=== PATIENT | female | born 1985 | race Caucasian/White ===

== ENCOUNTER 2017-07-02 17:03 | Emergency (ER) | payer OTHER ==
[2017-07-02 17:19] VITALS: BP 114/64; PULSE 74; TEMP 98.2; BMI 32.1
--- NOTE | 2017-07-02 18:43 | PDOC ---
History of Present Illness - General Chief Complaint: Injury Stated Complaint: FALL/INJURY Time Seen by Provider: 07/02/17 17:52 History Source: Patient Exam Limitations: No Limitations - History of Present Illness Initial Comments: 07/02/17 18:43 My chief complaint: Fall yesterday pain to right palm right anterior lower extremity and left ankle History of present illness: Patient is a 32-year-old with no significant medical history here today patient reports falling at work yesterday catching herself right hand stretched outward and twisting her left ankle and hitting her right lower leg. Patient has a bruise to her right mid palm. Patient does not have any swelling to her lower extremities. Patient denies hitting her head. She reports that she was limping this morning. Patient denies any chance of . Patient reports that pain in palm is 8 when putting her hand down on something and her right lower extremity is a 45 and left ankle 4 or 5 aching in nature. Patient does not want anything for pain presently. Patient denies any numbness of extremities. 07/02/17 19:21 Occurred: reports: yesterday Severity: reports: moderate (rt. palm) Pain Location: reports: lower extremity (left ankle, rt. lower extremity) Method of Injury: Yes: fall Modifying Factors: improves with: None Loss of Consciousness: no loss of consciousness Associated Symptoms (Fall): denies symptoms Past History - Past Medical History Allergies/Adverse Reactions: Allergies Allergy/AdvReac Type Severity Reaction Status Date / Time Penicillins Allergy Verified 07/02/17 17:13 Home Medications: Ambulatory Orders NK [No Known Home Medication] 07/02/17 Other medical history: DENIES - Immunization History Immunization Up to Date: Yes - Suicide/Smoking/Psychosocial Hx Smoking History: Never smoked Have you smoked in the past 12 months: No Information on smoking cessation initiated: No Hx Alcohol Use: No Drug/Substance Use Hx: No Substance Use Type: None Review of Systems - Review of Systems Able to Perform ROS?: Yes Constitutional: No: Symptoms Reported HEENTM: No: Symptoms Reported Respiratory: No: Symptoms reported Cardiac (ROS): No: Symptoms Reported ABD/GI: No: Symptoms Reported : No: Symptoms Reported Musculoskeletal: Yes: Joint Pain (rt. hand ), Other (rt. anterior lower leg, left ankle) Integumentary: Yes: Bruising (rt. palm ) Neurological: No: Symptoms reported *Physical Exam - Vital Signs Last Vital Signs Temp Pulse Resp BP Pulse Ox 98.2 F 74 16 114/64 98 07/02/17 17:13 07/02/17 17:13 07/02/17 17:13 07/02/17 17:13 07/02/17 17:13 - Physical Exam General Appearance: Yes: Appropriately Dressed Respiratory/Chest: positive: Lungs Clear, Normal Breath Sounds. negative: Chest Tender, Respiratory Distress Cardiovascular: positive: Regular Rhythm, Regular Rate, S1, S2 Vascular Pulses: Dorsalis-Pedis (R): 4+, Doralis-Pedis (L): 4+ Extremity: positive: Normal Capillary Refill, Normal Inspection (rt.wrist, hand except bruise palmar aspect mid, rt lower leg, ankle, foot, left ankle/foot), Normal Range of Motion (rt. wrist, all digits rt. hand, rt. elbow, left ankle b/ l , rt. anterior lower leg), Tender (rt palm, left ankle, rt. anterior lower extremity ) Integumentary: positive: Ecchymosis (rt. palm, ) Neurologic: positive: Alert, Normal Response, Respond to painful stimul (rt. hand, forearm, rt. lower extremity, left ankleb/l ), Responsive. negative: Numbness, Sensory Deficit (rt upper and lower extremity, left ankle b/l ) Deep Tendon Reflexes: Ankle (L): 4+, Ankle (R): 4+ ED Treatment Course - RADIOLOGY Radiology Studies Ordered: Category Date Time Status ANKLE & FOOT-LEFT* [RAD] Stat Radiology 07/02/17 18:36 Ordered LEG TIB/FIB-RIGHT [RAD] Stat Radiology 07/02/17 18:36 Ordered WRIST W/HAND-RIGHT* [RAD] Stat Radiology 07/02/17 18:36 Ordered Medical Decision Making - Medical Decision Making 07/02/17 18:45 Patient is a 32-year-old with no significant medical history here today patient reports falling at work yesterday catching herself right hand stretched outward and twisting her left ankle and hitting her right lower leg. Patient has a bruise to her right mid palm. Patient does not have any swelling to her lower extremities. Patient denies hitting her head. She reports that she was limping this morning. Patient denies any chance of . Patient reports that pain in palm is 8 when putting her hand down on something and her right lower extremity is a 45 and left ankle 4 or 5 aching in nature. Patient does not want anything for pain presently. Patient denies any numbness of extremities. fall r/o fracture rt. hand r/o fracture rt. tibia/fibia r/o fracture left ankle PLAN: xray rt. hand/wrist no gross bone or soft tissue abnormality seen per Dr. Mtz xray rt. tibia/fibia no fracture or abnormality seen per Dr. Mohamud xray left ankle/foot no fracture or dislocation noted there is mild soft tissue swelling over her dorsal aspect of foot without evidence of fracture or dislocation per Dr. Mohamud pancho wrap left foot/ankle follow up with orthopedist 07/02/17 19:13 *DC/Admit/Observation/Transfer Diagnosis at time of Disposition: Strain of foot, left Qualifiers: Encounter type: initial encounter Qualified Code(s): S96.912A - Strain of unspecified muscle and tendon at ankle and foot level, left foot, initial encounter Fall Qualifiers: Encounter type: initial encounter Qualified Code(s): W19.XXXA - Unspecified fall, initial encounter Leg pain, anterior Qualifiers: Laterality: right Qualified Code(s): M79.604 - Pain in right leg Contusion of right palm Qualifiers: Encounter type: initial encounter Qualified Code(s): S60.221A - Contusion of right hand, initial encounter - Discharge Dispostion Disposition: HOME Condition at time of disposition: Stable - Referrals Referrals: Jameson Pedraza MD [Staff Physician] - - Patient Instructions Additional Instructions: Elevate left foot as much as possible and apply ice to top of foot every 2-3 hours for 15 minutes each time today and tomorrow you may wear Pancho wrap to left foot and ankle during the day take off at night Apply ice to right palm every 2-3 hours for 15 minutes each time today and tomorrow while awake Take Aleve or Advil as needed as directed by inspector technician for pain Follow-up with orthopedist if pain continues Return to emergency room if symptoms worsen or new symptoms develop Patient voiced understanding of discharge instructions and all questions were answered - Post Discharge Activity Forms/Work/School Notes: Back to Work
== END 2017-07-02 19:24 | disposition home or self-care (01) ==
LOC: JERFT 17:03
DX: S60.221A Contusion of right hand, initial encounter (principal); S96.812A Strain of other specified muscles and tendons at ankle and foot level, left foot, initial encounter; W18.39XA Other fall on same level, initial encounter; Y93.89 Activity, other specified; Y92.89 Other specified places as the place of occurrence of the external cause; Y99.0 Civilian activity done for income or pay
CPT/HCPCS: 73110-TC-RT; 73130-TC-RT; 73590-TC-RT; 73610-TC-LT; 73630-TC-LT; 99281-25

== ENCOUNTER 2018-02-25 16:07 | Emergency (ER) | payer OTHER ==
[2018-02-25 16:19] VITALS: BMI 33.6
--- NOTE | 2018-02-25 16:20 | PDOC ---
Rapid Medical Evaluation Time Seen by Provider: 02/25/18 16:16 Medical Evaluation: Allergies Allergy/AdvReac Type Severity Reaction Status Date / Time Penicillins Allergy Verified 02/25/18 16:16 02/25/18 16:16 Pt. with L flank pain and nausea for 2 weeks. Pain wraps around to the LLQ. Nausea and pain after eating. Denies frequency, dysuria, vomiting, diarrhea, constipation Exam: Ambulatory, no respiratory distress. TTP LLQ. No CVA tenderness Order: labs, urine Pt. will proceed to ED for further evaluation.
[2018-02-25 17:27] LABS: BASO % 0.7 % (0-2.0); HEMATOCRIT 37.6 % (32.4-45.2); HEMOGLOBIN 12.3 GM/dL (10.7-15.3); LYMPH % 28.5 % (8-40); MCH 27.8 pg (25.7-33.7); MCHC 32.7 g/dl (32.0-36.0); MEAN CELL VOLUME 85.1 fl (80-96); MEAN PLT VOLUME 9.7 fl (7.5-11.1); MONO % 5.1 % (3.8-10.2); NEUT % 64.7 % (42.8-82.8); PLATELET COUNT 222 K/MM3 (134-434); RBC 4.42 M/mm3 (3.60-5.2); RDW 13.2 % (11.6-15.6); WHITE BLOOD COUNT 8.7 K/mm3 (4.0-10.0)
[2018-02-25 17:44] LABS: INR 1.03 (0.82-1.09); PROTHROMBIN TIME (PATIENT) 11.6 SEC (9.7-13.0)
[2018-02-25 17:55] LABS: ALBUMIN 3.9 g/dl (3.4-5.0); ANION GAP 7 (8-16); BLOOD UREA NITROGEN 19 mg/dL (7-18); CALCIUM 9.4 mg/dL (8.5-10.1); CHLORIDE 103 mmol/L (98-107); CO2 28 mmol/L (21-32); CREATININE 0.5 mg/dL (0.55-1.02); GLUCOSE,RANDOM 87 mg/dL (74-106); POTASSIUM 4.2 mmol/L (3.5-5.1); SGOT/AST 10 U/L (15-37); SGPT/ALT 19 U/L (12-78); SODIUM 138 mmol/L (136-145); TOT PROT 7.6 g/dl (6.4-8.2)
[2018-02-25 17:57] LABS: ALK PHOS 82 U/L (45-117); BILIRUBIN,TOTAL 0.3 mg/dL (0.2-1.0)
--- NOTE | 2018-02-25 18:15 | PDOC ---
Attending Attestation - HPI HPI: The patient is a 33 year old female with no significant past medical history who presents to the emergency room for evaluation of left flank pain. The patient reports intermittent episodes of left flank pain occuring for 2 days. The patient describes the pain as sharp, radiating to the medial anterior area for a duration of 2 hours. The patients LMP was 2 weeks ago. The patient denies chest pain, shortness of breath, dizziness, fever, nausea, headache, constipation, and diarrhea. Denies history of kidney stones, any urinary incontinence, dysuria, hematuria, or abnormal vaginal discharge. <Yunior Fernández - Last Filed: 02/25/18 20:10> - Resident Resident Name: Bradford Cardona - ED Attending Attestation I have performed the following: I have examined & evaluated the patient, The case was reviewed & discussed with the resident, I agree w/resident's findings & plan, Exceptions are as noted - HPI HPI: 02/25/18 18:15 33 YO FEMALE W - Physicial Exam PE: 02/26/18 00:28 WNWD 33 YO FEMALE IN NO ACUTE DISTRESS HEAD NCAT NECK SUPPLE LUNGS CTA B/L CVS [id number] ABD NO REBOUND,NO GUARDING EXT NO E/C/C NEURO AXOX3,AMBULATORY - Medical Decision Making 02/25/18 20:26 PELVIC US NO ACUTE PATHOLOGY,NO OVARIAN TORSION NEG <Laura Adorno - Last Filed: 02/26/18 00:30> Attestations - Attestations Documentation prepared by Yunior Fernández, acting as medical device sales consultant for Laura Adorno MD. <Yunior Fernández - Last Filed: 02/25/18 20:10>
--- NOTE | 2018-02-25 18:27 | PDOC ---
History of Present Illness - General Chief Complaint: Pain Stated Complaint: PAIN Time Seen by Provider: 02/25/18 16:16 History Source: Patient Exam Limitations: No Limitations - History of Present Illness Initial Comments: 02/25/18 18:20 The patient is a 33F with no PMH who presents to the ER with complaints of L flank pain. The patient states that she has had 2 weeks of intermittent, sharp, L flank pain which has worsened over the past 2 days. It has worsened to the point where she feels lightheaded when she experiences this pain. The pain comes on for 1-2 hours and she lays down when she gets it and it feels better. She denies any fever, chills, nausea, vomiting, hx of kidney stones, hematuria, dysuria, and vaginal discharge. LMP 2 weeks ago. Past History - Past Medical History Allergies/Adverse Reactions: Allergies Allergy/AdvReac Type Severity Reaction Status Date / Time Penicillins Allergy Verified 02/25/18 16:16 Home Medications: Ambulatory Orders NK [No Known Home Medication] 07/02/17 COPD: No - Immunization History Immunization Up to Date: Yes - Suicide/Smoking/Psychosocial Hx Smoking History: Never smoked Have you smoked in the past 12 months: No Information on smoking cessation initiated: No Hx Alcohol Use: No Drug/Substance Use Hx: No Substance Use Type: None Review of Systems - Review of Systems Able to Perform ROS?: Yes Comments:: 02/25/18 18:24 GENERAL/CONSTITUTIONAL: No fever or chills. No weakness. HEAD, EYES, EARS, NOSE AND THROAT: No change in vision. No ear pain or discharge. No sore throat. CARDIOVASCULAR: No chest pain, palpitations, or lightheadedness. RESPIRATORY: No cough, wheezing, shortness of breath, or hemoptysis. GASTROINTESTINAL: No nausea, vomiting, diarrhea, constipation, or abdominal pain. GENITOURINARY: Positive for L flank pain. No dysuria, frequency, hematuria, or change in urination. MUSCULOSKELETAL: No joint or muscle swelling or pain. No neck or back pain. SKIN: No rash or lesions. NEUROLOGIC: No headache, numbness, tingling, weakness, loss of consciousness, or change in strength/sensation. ENDOCRINE: No increased thirst. No abnormal weight change. HEMATOLOGIC/LYMPHATIC: No anemia, easy bleeding, or history of blood clots. ALLERGIC/IMMUNOLOGIC: No hives or skin allergy. Is the patient limited Nigerian proficient: No *Physical Exam - Vital Signs Last Vital Signs Temp Pulse Resp BP Pulse Ox 98.0 F 81 18 134/85 100 02/25/18 16:17 02/25/18 16:17 02/25/18 16:17 02/25/18 16:17 02/25/18 16:17 - Physical Exam Comments: 02/25/18 18:27 GENERAL: Well developed, well nourished. Awake and alert. No acute distress. HEENT: Normocephalic, atraumatic. Hearing grossly normal. Moist mucous membranes. PERRLA, EOMI. No conjunctival pallor. Sclera are non-icteric. NECK: Supple. Full ROM. CARDIOVASCULAR: Regular rate and rhythm. No murmurs, rubs, or gallops. Distal pulses are 2+ and symmetric. PULMONARY: No evidence of respiratory distress. Lungs clear to auscultation bilaterally. No wheezing, rales or rhonchi. ABDOMINAL: Soft. Tender to deep palpation in LLQ. Non-distended. No rebound or guarding. GENITOURINARY: No CVA tenderness bilaterally. MUSCULOSKELETAL: Normal range of motion at all joints. No bony deformities or tenderness. EXTREMITIES: No cyanosis. No clubbing. No edema. No calf tenderness or swelling. SKIN: Warm and dry. Normal capillary refill. No rashes. No jaundice. NEUROLOGICAL: Alert, awake, appropriate. Cranial nerves 2-12 intact. Normal speech. Gait is normal without ataxia. PSYCHIATRIC: Cooperative. Good eye contact. Appropriate mood and affect. Moderate Sedation - Procedure Monitoring Vital Signs: Vital Signs Temp Pulse Resp BP Pulse Ox 98.0 F 81 18 134/85 100 02/25/18 16:17 02/25/18 16:17 02/25/18 16:17 02/25/18 16:17 02/25/18 16:17 ED Treatment Course - LABORATORY CBC & Chemistry Diagram: 02/25/18 16:48 02/25/18 16:48 - ADDITIONAL ORDERS Additional order review: Laboratory Results 02/25/18 02/25/18 02/25/18 16:48 16:48 16:30 PT with INR 11.60 INR 1.03 Sodium 138 Potassium 4.2 Chloride 103 Carbon Dioxide 28 Anion Gap 7 L BUN 19 H Creatinine 0.5 L Creat Clearance w eGFR > 60 Random Glucose 87 Calcium 9.4 Total Bilirubin 0.3 AST 10 L ALT 19 Alkaline Phosphatase 82 Total Protein 7.6 Albumin 3.9 Lipase 109 02/25/18 16:48 RBC 4.42 MCV 85.1 MCHC 32.7 RDW 13.2 MPV 9.7 Neutrophils % 64.7 Lymphocytes % 28.5 Monocytes % 5.1 Eosinophils % 1.0 Basophils % 0.7 - RADIOLOGY Radiology Studies Ordered: Category Date Time Status TRANSVAGINAL ULTRASOUND US [US] Stat Ultrasound 02/25/18 18:01 Ordered Medical Decision Making - Medical Decision Making 02/25/18 18:28 The patient is a 33F with no PMH who presents to the ER with complaints of L flank pain which has worsened x 2 weeks. The patient is deferring a pelvic exam. I am concerned for ovarian torsion as the patient has LLQ abdominal pain. Pending labs and UA, will add transvaginal U/S to r/o torsion. 02/25/18 19:57 Labs not significant. U/S Impression: 3 cm right ovarian cyst. No Doppler evidence of ovarian torsion. Will give toradol for pain control. Will not CT scan as the patient's abdomen is soft, nontender. Pt is afebrile with normal labs. Pt will require PCP f/u. Will d/c pt after toradol. *DC/Admit/Observation/Transfer Diagnosis at time of Disposition: Cyst of ovary - Discharge Dispostion Disposition: HOME - Referrals - Patient Instructions - Post Discharge Activity
[2018-02-25 19:19] LABS: HCG,QUALITATIVE URINE NEGATIVE; URINE APPEARANCE CLEAR; URINE BILIRUBIN NEGATIVE (<2.0 mg/dL); URINE COLOR COLORLESS; URINE GLUCOSE (UA) NEGATIVE (NEGATIVE); URINE KETONE NEGATIVE (NEGATIVE); URINE LEUK ESTERASE NEGATIVE (NEGATIVE); URINE NITRITE NEGATIVE (NEGATIVE); URINE PROTEIN NEGATIVE (NEGATIVE); URINE UROBILINOGEN NEGATIVE mg/dL (0.2-1.0)
[2018-02-25 19:25] LABS: EPI CELLS RARE /HPF (FEW)
[2018-02-25] MEDS ORDERED: KETOROLAC TROMETHAMINE 60 MG/2 ML VIAL IM ONE (19:48)
[2018-02-25] MEDS ORDERED: KETOROLAC TROMETHAMINE 60 MG/2 ML VIAL ONE (20:10)
[2018-02-25] MEDS ORDERED: IBUPROFEN 400 MG TABLET (FP) PO ONE ×2 (20:15→20:25)
[2018-02-25 21:29] VITALS: BP 120/80; PULSE 69; TEMP 97.8
== END 2018-02-25 20:45 | disposition home or self-care (01) ==
LOC: JER 16:07
DX: N83.201 Unspecified ovarian cyst, right side (principal)
CPT/HCPCS: 36415; 76830-TC; 80053; 81003; 81015; 83690; 84703; 85025; 85610; 87086; 99283-25

== ENCOUNTER 2019-06-26 16:15 | Emergency (ER) | payer OTHER ==
--- NOTE | 2019-06-26 16:34 | PDOC ---
Rapid Medical Evaluation Medical Evaluation: Allergies Allergy/AdvReac Type Severity Reaction Status Date / Time Penicillins Allergy Verified 02/25/18 16:16 I have performed a brief in-person evaluation of this patient. The patient presents with a chief complaint of: L sided CP x2 days along with lightheaded; denies sob, n/v, use of OCPs, recent travel; no sig pmh; denies smoking or drug use Pertinent physical exam findings: In NAD, lungs clear I have ordered the following: ekg, cxr, labs The patient will proceed to the ED for further evaluation. 06/26/19 16:31
[2019-06-26 16:38] VITALS: TEMP 98; BMI 30.2
[2019-06-26 17:00] LABS: BASO % 0.7 % (0-2.0); EOS % 0.6 % (0-4.5); HEMATOCRIT 35.4 % (32.4-45.2); HEMOGLOBIN 11.5 GM/dL (10.7-15.3); LYMPH % 24.1 % (8-40); MCH 27.6 pg (25.7-33.7); MCHC 32.4 g/dl (32.0-36.0); MEAN CELL VOLUME 85.1 fl (80-96); MEAN PLT VOLUME 9.6 fl (7.5-11.1); MONO % 4.4 % (3.8-10.2); NEUT % 70.2 % (42.8-82.8); PLATELET COUNT 218 K/MM3 (134-434); RBC 4.17 M/mm3 (3.60-5.2); RDW 13.6 % (11.6-15.6); WHITE BLOOD COUNT 9.6 K/mm3 (4.0-10.0)
[2019-06-26 17:41] LABS: ALK PHOS 79 U/L (45-117); ANION GAP 6 MMOL/L (8-16); BILIRUBIN,TOTAL 0.3 mg/dL (0.2-1); BLOOD UREA NITROGEN 14.3 mg/dL (7-18); CALCIUM 9.5 mg/dL (8.5-10.1); CHLORIDE 105 mmol/L (98-107); CO2 27 mmol/L (21-32); CREATININE 0.7 mg/dL (0.55-1.3); GLUCOSE,RANDOM 91 mg/dL (74-106); POTASSIUM 4.2 mmol/L (3.5-5.1); SGOT/AST 12 U/L (15-37); SGPT/ALT 18 U/L (13-61); SODIUM 138 mmol/L (136-145); TOT PROT 7.4 g/dl (6.4-8.2)
--- NOTE | 2019-06-26 18:01 | PDOC ---
History of Present Illness - General Chief Complaint: Chest Pain Stated Complaint: CHEST PAIN Time Seen by Provider: 06/26/19 16:31 - History of Present Illness Initial Comments: 06/26/19 18:00 CHIEF COMPLAINT: chest pain HISTORY OF PRESENT ILLNESS: 34 yo F with no PMH presents to ED with left sided chest pain along with lightheadedness x 2 days. Patient denies SOB, n/v, use of OCPs, recent travel. Patient describes the pain as a "tightness" and is intermittent. Denies palpitations, swelling of legs. Patient reports that she has been under a lot of stress recently due to apartment hunting and financial assistance. No recent travel or sick contacts. PAST MEDICAL HISTORY: Denies past medical history FAMILY HISTORY: Denies SOCIAL HISTORY: Denies tobacco, alcohol, illicit drug use. SURGICAL HISTORY: Denies ALLERGIES: PCN REVIEW OF SYSTEMS General/Constitutional: Denies fever or chills. Denies weakness, weight change. HEENT: Denies change in vision. Denies ear pain or discharge. Denies sore throat. Cardiovascular: Chest pain x 2 days. Respiratory: Denies cough, wheezing, or hemoptysis. Gastrointestinal: Denies nausea, vomiting, diarrhea or constipation. Denies rectal bleeding. Genitourinary: Denies dysuria, frequency, or change in urination. Musculoskeletal: Denies joint or muscle swelling or pain. Denies neck or back pain. Skin and breasts: Denies rash or easy bruising. Neurologic: Denies headache, vertigo, loss of consciousness, or loss of sensation. Psychiatric: Denies depression or anxiety. PHYSICAL EXAM General Appearance: Well-appearing, appropriately dressed. No apparent distress. HEENT: EOMI, PERRLA, normal ENT inspection, normal voice, TMs normal, pharynx normal. No conjunctival pallor. No photophobia, scleral icterus. Neck: Supple. Trachea midline. No tenderness, rigidity, carotid bruit, stridor , lymphadenopathy, or thyromegaly. Respiratory/Chest: Lungs CTAB. No shortness of breath, chest tenderness, respiratory distress, accessory muscle use. No crackles, rales, rhonchi, stridor , wheezing, dullness Cardiovascular: RRR. S1, S2. No JVD, murmur, bradycardia, tachycardia. Vascular Pulses: Dorsalis-Pedis (R): 2+, Dorsalis-Pedis (L): 2+ Gastrointestinal/Abdominal: Normal bowel sounds. Abdomen soft, non-distended. No tenderness or rebound tenderness. No organomegaly, pulsatile mass, guarding , hernia, hepatomegaly, splenomegaly. Lymphatic: No adenopathy, tenderness. Musculoskeletal/Extremities: Normal inspection. FROM of all extremities, normal capillary refill. Pelvis Stable. No CVA tenderness. No tenderness to extremities, pedal edema, swelling, erythema or deformity. Integumentary: Appropriate color, dry, warm. No cyanosis, erythema, jaundice or rash Neurologic: piece work checker II-XII intact. Fully oriented, alert. Appropriate mood/affect. Motor strength 5/5. No appreciable EOM palsy, facial droop or sensory deficit. Past History - Past Medical History Allergies/Adverse Reactions: Allergies Allergy/AdvReac Type Severity Reaction Status Date / Time Penicillins Allergy Verified 06/26/19 16:35 Home Medications: Ambulatory Orders Hydroxyzine HCl 25 mg PO TID PRN #30 tablet 06/26/19 COPD: No - Immunization History Immunization Up to Date: Yes - Suicide/Smoking/Psychosocial Hx Smoking History: Never smoked Have you smoked in the past 12 months: No Information on smoking cessation initiated: No Hx Alcohol Use: No Drug/Substance Use Hx: No Substance Use Type: None *Physical Exam - Vital Signs Last Vital Signs Temp Pulse Resp BP Pulse Ox 98.0 F 76 16 119/85 99 06/26/19 16:35 06/26/19 16:35 06/26/19 16:35 06/26/19 16:35 06/26/19 16:35 ED Treatment Course - LABORATORY CBC & Chemistry Diagram: 06/26/19 16:45 06/26/19 16:45 - ADDITIONAL ORDERS Additional order review: Laboratory Results 06/26/19 16:45 Sodium 138 Potassium 4.2 Chloride 105 Carbon Dioxide 27 Anion Gap 6 L BUN 14.3 Creatinine 0.7 Est GFR (CKD-EPI)AfAm 132.87 Est GFR (CKD-EPI)NonAf 114.64 Random Glucose 91 Calcium 9.5 Total Bilirubin 0.3 AST 12 L ALT 18 Alkaline Phosphatase 79 Troponin I < 0.02 Total Protein 7.4 Albumin 4.0 06/26/19 16:45 RBC 4.17 MCV 85.1 MCHC 32.4 RDW 13.6 MPV 9.6 Neutrophils % 70.2 Lymphocytes % 24.1 Monocytes % 4.4 Eosinophils % 0.6 Basophils % 0.7 Medical Decision Making - Medical Decision Making 06/26/19 18:18 34 yo F with no PMH presents to ED with left sided chest pain along with lightheadedness x 2 days. -labs, EKG, CXR Workup unremarkablle. Given hx and presentation, likely anxiety. Hydroxyzine. *DC/Admit/Observation/Transfer Diagnosis at time of Disposition: Anxiety - Discharge Dispostion Disposition: HOME Condition at time of disposition: Stable Decision to Admit order: No - Prescriptions Prescriptions: Hydroxyzine HCl 25 mg PO TID PRN #30 tablet PRN Reason: Anxiety - Referrals Referrals: Fany Gannon MD [Primary Care Provider] - Bradford Verma MD [Staff Physician] - - Patient Instructions Printed Discharge Instructions: DI for Anxiety -- Adult, Anxiety and Panic Attacks (Alternative Therapy) Additional Instructions: Please take medications as prescribed. Please follow up with Dr. Gannon within the next week for continued monitoring of your symptoms. If you develop sudden , crushing chest pain, shortness of breath, or any new or worsening symptoms, please return to the ER immediately. - Post Discharge Activity
[2019-06-26 18:47] VITALS: BP 131/74; PULSE 73
--- NOTE | 2019-06-29 07:16 | EKG ---
Test Reason : Blood Pressure : / mmHG Vent. Rate : 079 BPM Atrial Rate : 079 BPM P-R Int : 152 ms QRS Dur : 068 ms QT Int : 366 ms P-R-T Axes : 036 010 025 degrees QTc Int : 419 ms NORMAL SINUS RHYTHM NORMAL ECG NO PREVIOUS ECGS AVAILABLE Confirmed by WILMER SCOTT MD ([id number]) on 06/29/2019 7:15:57 AM Referred By: Confirmed By:WILMER SCOTT MD
== END 2019-06-26 19:00 | disposition home or self-care (01) ==
LOC: JER 16:15
DX: F41.9 Anxiety disorder, unspecified (principal); F43.9 Reaction to severe stress, unspecified
CPT/HCPCS: 36415; 71046-TC-FY; 80053; 84484; 85025; 93005; 93010; 99282-25

== ENCOUNTER 2019-07-25 13:57 | Emergency (ER) | payer OTHER ==
[2019-07-25 14:06] VITALS: BP 126/77; PULSE 84; TEMP 98.2; BMI 30.2
[2019-07-25] MEDS ORDERED: KETOROLAC TROMETHAMINE 60 MG/2 ML VIAL IM ONE (14:28)
[2019-07-25] MEDS ORDERED: KETOROLAC TROMETHAMINE 60 MG/2 ML VIAL ONE (14:37)
[2019-07-25 14:44] LABS: BASO % 0.7 % (0-2.0); EOS % 1.5 % (0-4.5); HEMATOCRIT 38.3 % (32.4-45.2); HEMOGLOBIN 12.7 GM/dL (10.7-15.3); LYMPH % 28.5 % (8-40); MCH 28.3 pg (25.7-33.7); MCHC 33.1 g/dl (32.0-36.0); MEAN CELL VOLUME 85.5 fl (80-96); MEAN PLT VOLUME 9.5 fl (7.5-11.1); MONO % 5.5 % (3.8-10.2); NEUT % 63.8 % (42.8-82.8); PLATELET COUNT 206 K/MM3 (134-434); RBC 4.48 M/mm3 (3.60-5.2); RDW 13.3 % (11.6-15.6); WHITE BLOOD COUNT 6.5 K/mm3 (4.0-10.0)
--- NOTE | 2019-07-25 15:00 | PDOC ---
History of Present Illness - General Chief Complaint: Psychiatric Stated Complaint: CHEST PAIN Time Seen by Provider: 07/25/19 14:23 History Source: Patient Exam Limitations: No Limitations - History of Present Illness Initial Comments: 07/25/19 15:00 34-year-old female presents the ED with complaints of increased stress and anxiety for the past few days and states since yesterday afternoon. Patient states yesterday started to develop intermittent right to left and left to right chest tightness with palpitations causing mild dizziness patient denies drugs, alcohol, recent travel, difficulty breathing, fever or chills. Patient states last time this occurred she was given Vistaril which seemed to alleviate her symptoms but also made her drowsy causing her to sleep most of the day. Is this a multiple visit Asthma Patient?: No Timing/Duration: intermittent Severity: mild Associated Symptoms: reports: chest pain. denies: denies symptoms Past History - Travel Traveled outside of the country in the last 30 days: No Close contact w/someone who was outside of country & ill: No - Past Medical History Allergies/Adverse Reactions: Allergies Allergy/AdvReac Type Severity Reaction Status Date / Time Penicillins Allergy Verified 07/25/19 14:04 Home Medications: Ambulatory Orders Hydroxyzine HCl 25 mg PO TID PRN #30 tablet 06/26/19 COPD: No Psychiatric Problems: Yes (ANXIETY) - Immunization History Immunization Up to Date: Yes - Psycho Social/Smoking Cessation Hx Smoking History: Never smoked Have you smoked in the past 12 months: No Hx Alcohol Use: No Drug/Substance Use Hx: No Substance Use Type: None Patient Lives Alone: No Lives with/in: spouse/SO Review of Systems - Review of Systems Able to Perform ROS?: Yes Constitutional: No: Symptoms Reported HEENTM: No: Symptoms Reported Respiratory: No: Symptoms reported Cardiac (ROS): Yes: Palpitations. No: Chest Pain, Irregular Heart Rate, Lightheadedness ABD/GI: No: Symptoms Reported : No: Symptoms Reported Musculoskeletal: No: Symptoms Reported Integumentary: No: Symptoms Reported Neurological: No: Symptoms reported Psychiatric: Yes: Anxiety, Stressors Endocrine: No: Symptoms Reported Hematologic/Lymphatic: No: Symptoms Reported *Physical Exam - Vital Signs Last Vital Signs Temp Pulse Resp BP Pulse Ox 98.2 F 84 16 126/77 100 07/25/19 14:04 07/25/19 14:04 07/25/19 14:04 07/25/19 14:46 07/25/19 14:04 - Physical Exam General Appearance: Yes: Nourished, Appropriately Dressed. No: Apparent Distress HEENT: negative: Pale Conjunctivae Neck: positive: Normal Thyroid, Supple Respiratory/Chest: positive: Chest Tender (Left of midsternal. mild), Lungs Clear, Normal Breath Sounds. negative: Respiratory Distress, Accessory Muscle Use Cardiovascular: positive: Regular Rhythm, Regular Rate. negative: Murmur Gastrointestinal/Abdominal: positive: Soft. negative: Tenderness Integumentary: positive: Normal Color, Warm, Moist Neurologic: positive: Motor Strength 5/5 (Ambulatory) Heart Score/ECG Review - ECG Intrepretation Rhythm: Regular Rhythm (Rate 84. Normal sinus rhythm. No ST elevation or depression. Intervals are regular.) ED Treatment Course - LABORATORY CBC & Chemistry Diagram: 07/25/19 14:30 07/25/19 14:30 - ADDITIONAL ORDERS Additional order review: 07/25/19 14:30 RBC 4.48 MCV 85.5 MCHC 33.1 RDW 13.3 MPV 9.5 Neutrophils % 63.8 Lymphocytes % 28.5 Monocytes % 5.5 Eosinophils % 1.5 D Basophils % 0.7 - Medications Given in the ED: ED Medications Discontinued Medications Generic Name Dose Route Start Last Admin Trade Name Freq PRN Reason Stop Dose Admin Ketorolac Tromethamine 60 mg 07/25/19 14:28 07/25/19 14:43 Toradol Injection - IM 07/25/19 14:29 60 mg ONCE ONE Administration Medical Decision Making - Medical Decision Making 07/25/19 15:05 Chief complaint: Intermittent chest tightness and palpitations causing mild dizziness with episodes of the past 2 days patient states similar symptoms approximately 1 month was given Vistaril which resolved her symptoms but also made her groggy. No risk factors no medical history Exam: Mild midsternal tenderness on exam. Vital signs stable. Lungs clear to auscultation. Plan: CBC, comp troponins, Toradol and EKG ordered 07/25/19 15:14 Laboratory Tests 07/25/19 07/25/19 14:30 14:30 WBC 6.5 Hgb 12.7 Hct 38.3 Neutrophils % 63.8 Lymphocytes % 28.5 Eosinophils % 1.5 D Basophils % 0.7 Nucleated RBC % 0 Sodium 139 Potassium 4.4 Chloride 106 Carbon Dioxide 28 Anion Gap 5 L BUN 12.7 Creatinine 0.8 Est GFR (CKD-EPI)AfAm 113.06 Random Glucose 132 H Calcium 8.9 Total Bilirubin 0.5 AST 8 L ALT 16 Alkaline Phosphatase 83 Creatine Kinase 57 Troponin I < 0.02 Total Protein 7.4 Albumin 3.9 Pt states relief of pain. Will prescribe Tylenol for treatment of costochondritis. Discussed with patient if symptoms continue or feels that this may be related to anxiety or other underlying causes to follow-up with the healthcare social worker/ psychiatrist. Discharge - Discharge Information Problems reviewed: Yes Clinical Impression/Diagnosis: Chest wall pain Condition: Improved Disposition: HOME - Follow up/Referral Referrals: Fany Gannon MD [Primary Care Provider] - - Patient Discharge Instructions Patient Printed Discharge Instructions: DI for Costochondritis Additional Instructions: At this time I recommend taking tonic strength every 8 hours as discussed. If your symptoms continue in regards to palpitations difficulty breathing , worsening insomnia or change in appetite or activity to follow-up with the psychologist or healthcare social worker. - Post Discharge Activity
[2019-07-25 15:04] LABS: ALBUMIN 3.9 g/dl (3.4-5.0); ALK PHOS 83 U/L (45-117); ANION GAP 5 MMOL/L (8-16); BILIRUBIN,TOTAL 0.5 mg/dL (0.2-1); BLOOD UREA NITROGEN 12.7 mg/dL (7-18); CALCIUM 8.9 mg/dL (8.5-10.1); CHLORIDE 106 mmol/L (98-107); CO2 28 mmol/L (21-32); CREATININE 0.8 mg/dL (0.55-1.3); GLUCOSE,RANDOM 132 mg/dL (74-106); POTASSIUM 4.4 mmol/L (3.5-5.1); SGOT/AST 8 U/L (15-37); SGPT/ALT 16 U/L (13-61); SODIUM 139 mmol/L (136-145); TOT PROT 7.4 g/dl (6.4-8.2)
--- NOTE | 2019-07-25 20:14 | EKG ---
Test Reason : Blood Pressure : / mmHG Vent. Rate : 072 BPM Atrial Rate : 072 BPM P-R Int : 128 ms QRS Dur : 082 ms QT Int : 372 ms P-R-T Axes : 023 013 032 degrees QTc Int : 407 ms NORMAL SINUS RHYTHM NORMAL ECG WHEN COMPARED WITH ECG OF 26-JUN-2019 16:30, NO SIGNIFICANT CHANGE WAS FOUND Confirmed by MD LUZ, CLARISSA ([id number]) on 07/25/2019 8:13:58 PM Referred By: Confirmed By:CLARISSA ESCOBAR MD
== END 2019-07-25 15:28 | disposition home or self-care (01) ==
LOC: JER 13:57
PROC: 3E0233Z Introduction of Anti-inflammatory into Muscle, Percutaneous Approach (ICD-10-PCS; principal; 2019-07-25)
DX: R07.89 Other chest pain (principal); F41.9 Anxiety disorder, unspecified; Z88.0 Allergy status to penicillin
CPT/HCPCS: 36415; 80053; 82550; 84484; 85025; 93005; 93010; 96372; 99283-25

== ENCOUNTER 2019-08-03 15:56 | Emergency (ER) | payer OTHER ==
[2019-08-03] MEDS ORDERED: ASPIRIN 81 MG CHEWABLE TABLETS PO ONE (16:11)
--- NOTE | 2019-08-03 16:11 | PDOC ---
Rapid Medical Evaluation Chief Complaint: Chest Pain Time Seen by Provider: 08/03/19 16:09 Medical Evaluation: Allergies Allergy/AdvReac Type Severity Reaction Status Date / Time Penicillins Allergy Verified 08/03/19 16:09 08/03/19 16:09 HPI: CP today and rapid heart rate denies possibility or PE: No gross deficits ORDERS: Cardiac work up
[2019-08-03 16:16] VITALS: BMI 30.2
[2019-08-03] MEDS ORDERED: ASPIRIN 81 MG CHEWABLE TABLETS ONE (16:22)
[2019-08-03 16:30] LABS: BASO % 0.7 % (0-2.0); EOS % 0.9 % (0-4.5); HEMATOCRIT 38.3 % (32.4-45.2); HEMOGLOBIN 12.3 GM/dL (10.7-15.3); LYMPH % 21.3 % (8-40); MCH 27.4 pg (25.7-33.7); MCHC 32.1 g/dl (32.0-36.0); MEAN CELL VOLUME 85.2 fl (80-96); MEAN PLT VOLUME 9.6 fl (7.5-11.1); MONO % 6.2 % (3.8-10.2); NEUT % 70.9 % (42.8-82.8); PLATELET COUNT 231 K/MM3 (134-434); WHITE BLOOD COUNT 10.2 K/mm3 (4.0-10.0)
[2019-08-03 17:04] LABS: INR 1.04 (0.83-1.09); PROTHROMBIN TIME (PATIENT) 12.3 SEC (9.7-13.0)
[2019-08-03 17:06] LABS: ALK PHOS 84 U/L (45-117); ANION GAP 8 MMOL/L (8-16); BILIRUBIN,TOTAL 0.2 mg/dL (0.2-1); BLOOD UREA NITROGEN 19.9 mg/dL (7-18); CALCIUM 9.3 mg/dL (8.5-10.1); CHLORIDE 103 mmol/L (98-107); CO2 27 mmol/L (21-32); CREATININE 0.8 mg/dL (0.55-1.3); GLUCOSE,RANDOM 89 mg/dL (74-106); POTASSIUM 4.3 mmol/L (3.5-5.1); SGOT/AST 10 U/L (15-37); SGPT/ALT 20 U/L (13-61); SODIUM 138 mmol/L (136-145); TOT PROT 7.6 g/dl (6.4-8.2)
[2019-08-03 17:50] VITALS: BP 102/80; PULSE 92; TEMP 97.9
--- NOTE | 2019-08-03 18:04 | PDOC ---
History of Present Illness - General Chief Complaint: Chest Pain Stated Complaint: CHEST PAIN Time Seen by Provider: 08/03/19 16:09 - History of Present Illness Initial Comments: 08/03/19 18:05 34f with pmh of anxiety and panic attack disorder presents with palpitations and chest pain since 11am this morning. She states that she was at work when she suddenly felt her heart racing and saw her Apple Watch indicated her heart rate to be between 150-160. she states that she had similar episodes of palpitations in the past that where attributed to panic attacks. Was refered to a psychiatriast but never went. States she had tea this morning and 2 red bulls but that doesn't deviate from her regular regimen. Admits to recent relationship stressors. Has been tested for hyperthyroidism in the past which was negative Denies history of smoking, HTN, HLD, family history of heart attack or any previous blood clots. Past History - Past Medical History Allergies/Adverse Reactions: Allergies Allergy/AdvReac Type Severity Reaction Status Date / Time Penicillins Allergy Verified 08/03/19 16:09 Home Medications: Ambulatory Orders Hydroxyzine HCl 25 mg PO TID PRN #30 tablet 06/26/19 COPD: No Psychiatric Problems: Yes (ANXIETY) - Immunization History Immunization Up to Date: Yes - Psycho Social/Smoking Cessation Hx Smoking History: Never smoked Have you smoked in the past 12 months: No Hx Alcohol Use: No Drug/Substance Use Hx: No Substance Use Type: None Review of Systems - Review of Systems Able to Perform ROS?: Yes Is the patient limited Greenlandic proficient: No Constitutional: No: Symptoms Reported HEENTM: No: Symptoms Reported Respiratory: No: Symptoms reported Cardiac (ROS): Yes: See HPI ABD/GI: No: Symptoms Reported : No: Symptoms Reported Musculoskeletal: No: Symptoms Reported Integumentary: No: Symptoms Reported Neurological: No: Symptoms reported All Other Systems: Reviewed and Negative *Physical Exam - Vital Signs Last Vital Signs Temp Pulse Resp BP Pulse Ox 97.9 F 92 H 20 102/80 99 08/03/19 17:50 08/03/19 17:50 08/03/19 17:50 08/03/19 17:50 08/03/19 17:50 - Physical Exam General Appearance: Yes: Nourished, Appropriately Dressed. No: Apparent Distress HEENT: positive: EOMI, PARISA, Normal ENT Inspection Respiratory/Chest: positive: Lungs Clear, Normal Breath Sounds. negative: Chest Tender, Respiratory Distress Cardiovascular: positive: Regular Rhythm, Regular Rate, S1, S2 Gastrointestinal/Abdominal: positive: Normal Bowel Sounds, Flat, Soft. negative : Tender Musculoskeletal: positive: Normal Inspection. negative: CVA Tenderness Extremity: positive: Normal Capillary Refill, Normal Inspection, Normal Range of Motion Integumentary: positive: Normal Color, Dry, Warm Neurologic: positive: Fully Oriented, Alert, Normal Mood/Affect, Normal Response , Motor Strength 5/5 Heart Score/ECG Review - History History: Slightly suspicious - Electrocardiogram EKG: Normal - Age Age: </= 45 - Risk Factors Risk Factors Heart Score: No Hx Hypercholesterolemia, No Hx Hypertension, No Hx Diabetes, No Smoking History, No Positive family hx of cardiac disease, No Hx Obesity Based on the list above the patient has:: No risk factors known - Troponin Troponin: </= normal limit - Score Heart Score - Total: 0 ED Treatment Course - LABORATORY CBC & Chemistry Diagram: 08/03/19 16:18 08/03/19 16:18 - ADDITIONAL ORDERS Additional order review: Laboratory Results 08/03/19 08/03/19 08/03/19 16:18 16:18 16:18 PT with INR 12.30 INR 1.04 D-Dimer 402 Sodium 138 Potassium 4.3 Chloride 103 Carbon Dioxide 27 Anion Gap 8 BUN 19.9 H Creatinine 0.8 Est GFR (CKD-EPI)AfAm 113.06 Est GFR (CKD-EPI)NonAf 97.55 Random Glucose 89 Calcium 9.3 Magnesium 2.0 Total Bilirubin 0.2 AST 10 L ALT 20 Alkaline Phosphatase 84 Creatine Kinase 47 Troponin I < 0.02 Total Protein 7.6 Albumin 4.0 08/03/19 16:18 RBC 4.50 MCV 85.2 MCHC 32.1 RDW 13.0 MPV 9.6 Neutrophils % 70.9 Lymphocytes % 21.3 D Monocytes % 6.2 Eosinophils % 0.9 Basophils % 0.7 - Medications Given in the ED: ED Medications Discontinued Medications Generic Name Dose Route Start Last Admin Trade Name Freq PRN Reason Stop Dose Admin Aspirin 162 mg 08/03/19 16:11 08/03/19 16:26 Asa - PO 08/03/19 16:12 162 mg ONCE ONE Administration Medical Decision Making - Medical Decision Making 08/04/19 00:00 34f with pmh of anxiety and panic attack disorder presents with palpitations and chest pain since 11am this morning. CAD vs PE vs hyperthyroidism vs paroxysmal arrythmia vs psychogenic tachycardia 08/04/19 00:00 Heart score of zero. This is likely related to her panic attack disorder +/- caffeine consumption. Negative troponin. EKG 08/04/19 00:02 General ECG Interpretation: Sinus Rhythm, Normal Rate (86), Normal Intervals, No acute ischemic changes Advised reduction of caffeine consumption, psychiatrist appointment and vice president talent management follow up with holter monitoring. Ok to Dc Discharge - Discharge Information Problems reviewed: Yes Clinical Impression/Diagnosis: Chest wall pain, Tachycardia Condition: Critical Disposition: HOME - Admission No - Follow up/Referral Referrals: Fany Gannon MD [Primary Care Provider] - Mainor Alexis MD [Staff Physician] - Abel Norwood MD [Staff Physician] - Bradford Verma MD [Staff Physician] - Tylor Mcfarland MD [Staff Physician] - Jahaira Preston MD [Staff Physician] - Joseluis Cary MD [Staff Physician] - Ligia Nolasco MD [Staff Physician] - Randell Cat MD [Staff Physician] - Montez Schulz MD [Staff Physician] - Gerber Thompson MD [Staff Physician] - Arjun Marley MD [Staff Physician] - - Patient Discharge Instructions Patient Printed Discharge Instructions: Tachycardia, DI for Atypical Chest Pain Additional Instructions: Follow up with any of the cardiologists listed here for possible holter monitor placement. Come back to the emergency department for any new, worsening or concerning symptom. Follow up with psychiatry, we listed Dr. Conklin here for your convenience. - Post Discharge Activity
--- NOTE | 2019-08-03 18:18 | PDOC ---
Attending Attestation - Resident Resident Name: José Antonio Martínez - ED Attending Attestation I have performed the following: I have examined & evaluated the patient, The case was reviewed & discussed with the resident, I agree w/resident's findings & plan, Exceptions are as noted - HPI HPI: 08/03/19 18:15 34-year-old female history of anxiety here today complaining of palpitations and chest pain. Patient states she was walking in from outside suddenly felt like her heart was racing she looked at her apple watch and noted her heart rate to be 148. Denies any previous history of sudden syncope or history of blood clots does have a family history of heart disease and a uncle in his 50s denies any drug use states that she did drink tea today and had 2 red bowls which she does drink on a regular basis at this time is currently asymptomatic no other current complaints - Physicial Exam PE: 08/03/19 18:16 Awake alert no acute distress lungs are clear bilaterally heart is regular without murmurs rubs or gallops abdomen is soft and nontender skin is warm and dry extremities are warm well perfused there is no noted edema or calf tenderness pulses are symmetric bilaterally - Medical Decision Making 08/03/19 18:16 34-year-old female history of anxiety here with a racing heartbeat following heavy caffeine intake states she is under stress lately. Plan EKG rule out dysrhythmia basic labs rule out electrolyte abnormalities anemia has had her thyroid checked recently. EKG shows normal sinus rhythm electrolytes are normal troponin is negative patient was advised to avoid heavy caffeine intake was given follow-up with cardiology told to call to arrange follow-up for possible Holter monitor discharged home. d dimer was negative. 08/03/19 18:17 Heart Score/ECG Review #1 General ECG Interpretation: Sinus Rhythm, Normal Rate (86), Normal Intervals, No acute ischemic changes
--- NOTE | 2019-08-04 11:05 | EKG ---
Test Reason : Blood Pressure : / mmHG Vent. Rate : 086 BPM Atrial Rate : 086 BPM P-R Int : 146 ms QRS Dur : 068 ms QT Int : 352 ms P-R-T Axes : 041 007 025 degrees QTc Int : 421 ms NORMAL SINUS RHYTHM MINIMAL VOLTAGE CRITERIA FOR LVH, MAY BE NORMAL VARIANT BORDERLINE ECG WHEN COMPARED WITH ECG OF 25-JUL-2019 15:06, NO SIGNIFICANT CHANGE WAS FOUND Confirmed by Tylor Mcfarland MD ([id number]) on 08/04/2019 11:05:18 AM Referred By: Confirmed By:Tylor Mcfarland MD
== END 2019-08-03 18:25 | disposition home or self-care (01) ==
LOC: JER 15:56
DX: R07.89 Other chest pain (principal); R00.0 Tachycardia, unspecified; F41.9 Anxiety disorder, unspecified; F41.0 Panic disorder [episodic paroxysmal anxiety]; Z88.0 Allergy status to penicillin
CPT/HCPCS: 36415; 71046-TC-FY; 80053; 82550; 83735; 84484; 85025; 85379; 85610; 93005; 93010; 99284-25

== ENCOUNTER 2019-11-20 13:38 | Emergency (ER) | payer OTHER ==
[2019-11-20 13:47] VITALS: BP 120/76; PULSE 87; TEMP 98.1; BMI 27.3
--- NOTE | 2019-11-20 14:22 | PDOC ---
History of Present Illness - General Chief Complaint: Cold Symptoms Stated Complaint: COLD SYMPTOMS Time Seen by Provider: 11/20/19 14:08 History Source: Patient Exam Limitations: Clinical Condition - History of Present Illness Initial Comments: 11/20/19 14:18 Patient with no significant past medical history present with complaint of 3- day history of cough, nasal congestion, intermittent chest tightness and sore throat. Patient reports she was treated for URI symptoms and antibiotics over a week ago and finished a course of antibiotics last week. Denies fever, chills , nausea, vomiting, abdominal pains. Patient did not take anything for symptoms. Denies any other symptoms Is this a multiple visit Asthma Patient?: No Timing/Duration: other (3 days) Past History - Past Medical History Allergies/Adverse Reactions: Allergies Allergy/AdvReac Type Severity Reaction Status Date / Time Penicillins Allergy Verified 11/20/19 13:47 Home Medications: Ambulatory Orders Hydroxyzine HCl 25 mg PO TID PRN #30 tablet 06/26/19 Benzonatate [Tessalon Pearls -] 100 mg PO TID PRN #21 capsule 11/20/19 Ipratropium [place] 2 spray NS BID PRN 5 Days #1 spray 11/20/19 Methylprednisolone [Medrol Dose Kane] 4 mg PO ASDIR #21 tablet 11/20/19 COPD: No Diabetes: No HTN: No Hypercholesterolemia: No Psychiatric Problems: Yes (ANXIETY) - Immunization History Immunization Up to Date: Yes - Psycho Social/Smoking Cessation Hx Smoking History: Never smoked Have you smoked in the past 12 months: No Information on smoking cessation initiated: No Hx Alcohol Use: No Drug/Substance Use Hx: No Substance Use Type: None Review of Systems - Review of Systems Able to Perform ROS?: Yes Is the patient limited Maori proficient: No Constitutional: No: Chills, Fever, Malaise HEENTM: Yes: Symptoms Reported, See HPI, Nose Congestion, Throat Pain. No: Eye Pain, Blurred Vision, Tearing, Recent change in vision, Double Vision, Cataracts , Ear Pain, Ocular Prothesis, Ear Discharge, Nose Pain, Tinnitus, Nose Bleeding , Hearing Loss, Throat Swelling, Mouth Pain, Dental Problems, Difficulty Swallowing, Mouth Swelling, Other Respiratory: Yes: Symptoms reported, See HPI, Cough. No: Orthopnea, Shortness of Breath, SOB with Exertion, SOB at Rest, Stridor, Wheezing, Productive cough, Hemoptysis, Other Cardiac (ROS): Yes: Symptoms Reported, See HPI, Chest Tightness (intermittent). No: Chest Pain, Edema, Irregular Heart Rate, Lightheadedness, Palpitations, Syncope, Other ABD/GI: No: Symptoms Reported, Nausea, Vomiting All Other Systems: Reviewed and Negative *Physical Exam - Vital Signs Last Vital Signs Temp Pulse Resp BP Pulse Ox 98.1 F 87 16 120/76 100 11/20/19 13:44 11/20/19 13:44 11/20/19 13:44 11/20/19 13:44 11/20/19 13:44 - Physical Exam 11/20/19 14:21 GENERAL: Well developed, well nourished. Awake and alert. No acute distress. HEENT: Normocephalic, atraumatic. PERRLA, EOMI. No conjunctival pallor. Sclera are non-icteric. Moist mucous membranes. Oropharynx is clear. NECK: Supple. Full ROM. CARDIOVASCULAR: Regular rate and rhythm. No murmurs, rubs, or gallops. Distal pulses are 2+ and symmetric. PULMONARY: No evidence of respiratory distress. Lungs clear to auscultation bilaterally. No wheezing, rales or rhonchi. MUSCULOSKELETAL Normal range of motion at all joints. SKIN: Warm and dry. Normal capillary refill. No rashes. No cyanosis. NEUROLOGICAL: Alert, awake, appropriate. Gait is normal without ataxia. PSYCHIATRIC: Cooperative. Good eye contact. Appropriate mood General Appearance: Yes: Nourished, Appropriately Dressed. No: Apparent Distress ED Treatment Course - RADIOLOGY Radiology Studies Ordered: Category Date Time Status CHEST PA & LAT [RAD] Stat Radiology 11/20/19 14:13 Ordered Medical Decision Making - Medical Decision Making 11/20/19 14:20 Patient with no significant past medical history present with complaint of 3- day history of cough, nasal congestion, intermittent chest tightness and sore throat. Patient reports she was treated for URI symptoms and antibiotics over a week ago and finished a course of antibiotics last week. Denies fever, chills , nausea, vomiting, abdominal pains. Patient did not take anything for symptoms. Denies any other symptoms Clinical exam unremarkable with no pharyngeal erythema and lungs clear to auscultation bilateral. Patient in no acute respiratory distress. Patient symptoms likely viral URI with bronchospasm versus less likely strep versus less likely pneumonia. Rapid strep ordered to rule out strep pharyngitis. Chest x-ray ordered to rule out pneumonia 11/20/19 15:55 Chest x-ray shows no pneumonia. Rapid strep negative. Patient symptoms likely viral URI and stable for outpatient management on Tessalon Perles as needed for cough and Medrol Kane for congestion and bronchospasm with Atrovent nasal spray for nasal congestion with PCP follow-up Discharge - Discharge Information Problems reviewed: Yes Clinical Impression/Diagnosis: URI, acute, Bronchospasm, acute Condition: Stable Disposition: HOME - Additional Discharge Information Prescriptions: Benzonatate [Tessalon Pearls -] 100 mg PO TID PRN #21 capsule PRN Reason: Cough Ipratropium [place] 2 spray NS BID PRN 5 Days #1 spray PRN Reason: nasal congestion Methylprednisolone [Medrol Dose Kane] 4 mg PO ASDIR #21 tablet - Follow up/Referral Referrals: Fany Gannon MD [Primary Care Provider] - - Patient Discharge Instructions Patient Printed Discharge Instructions: DI for Viral Upper Respiratory Infection -- Adult Additional Instructions: Your chest x-ray shows no pneumonia. symptoms likely cough with chest negative causing bronchospasm from cold weather. Your strep test is negative. Take prescribed medications prescribed for cough and congestion. Follow-up with primary care as needed - Post Discharge Activity
== END 2019-11-20 15:18 | disposition home or self-care (01) ==
LOC: JERFT 13:38
DX: J06.9 Acute upper respiratory infection, unspecified (principal); B97.89 Other viral agents as the cause of diseases classified elsewhere; J98.01 Acute bronchospasm
CPT/HCPCS: 71046-TC-FY; 87070; 87880; 99283-25

== ENCOUNTER 2020-07-12 17:47 | Emergency (ER) | payer OTHER ==
[2020-07-12 17:55] VITALS: BP 121/73; PULSE 81; TEMP 98.2; BMI 27.3
--- NOTE | 2020-07-12 17:55 | PDOC ---
Rapid Medical Evaluation Time Seen by Provider: 07/12/20 17:53 Medical Evaluation: Allergies Allergy/AdvReac Type Severity Reaction Status Date / Time Penicillins Allergy Verified 07/12/20 17:53 07/12/20 17:53 Pt presents for evaluation of L ankle pain for one week. Exam: ambulatory, ankle wrapped in polo wrap Orders: x-ray Pt to proceed to the ER for further evaluation Discharge Disposition - Diagnosis Ankle pain Qualifiers: Chronicity: acute Laterality: left Qualified Code(s): M25.572 - Pain in left ankle and joints of left foot - Referrals - Patient Instructions - Post Discharge Activity
--- NOTE | 2020-07-12 18:44 | PDOC ---
History of Present Illness - General Chief Complaint: Bone Injury Stated Complaint: INJURY/LEFT ANKLE Time Seen by Provider: 07/12/20 17:53 History Source: Patient Exam Limitations: No Limitations - History of Present Illness Initial Comments: 07/12/20 18:41 Patient is a 35-year-old female with no past medical history who presents to the ED with left lateral ankle pain after an inversion injury while going down the steps 1 week ago. She states that she has been walking on it but the last 2 days have been more painful. 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 She denies any numbness or tingling. She has been taking Motrin which has been helping her slightly. She has allergies to penicillin. Past History - Medical History Allergies/Adverse Reactions: Allergies Allergy/AdvReac Type Severity Reaction Status Date / Time Penicillins Allergy Verified 07/12/20 17:53 Home Medications: Ambulatory Orders Hydroxyzine HCl 25 mg PO TID PRN #30 tablet 06/26/19 Benzonatate [Tessalon Pearls -] 100 mg PO TID PRN #21 capsule 11/20/19 Ipratropium [place] 2 spray NS BID PRN 5 Days #1 spray 11/20/19 Methylprednisolone [Medrol Dose [place]] 4 mg PO ASDIR #21 tablet 11/20/19 COPD: No Diabetes: No HTN: No Hypercholesterolemia: No Psychiatric Problems: Yes (ANXIETY) - Reproductive History Is Patient Now?: No - Immunization History Immunization Up to Date: Yes - Psycho-Social/Smoking History Smoking History: Never smoked Have you smoked in the past 12 months: No - Substance Abuse Hx (Audit-C & DAST Scrn) How often the patient has a drink containing alcohol: Never Score: In Men: 4 or > Positive; In Women: 3 or > Positive: 0 Screen Result (Pos requires Nsg. Audit-10AR): Negative In the last yr the pt used illegal drug/Rx for NonMed reason: No Score: Yes response is considered Positive: 0 Screen Result (Positive result requires Nsg. DAST-10): Negative Review of Systems - Review of Systems Comments:: 07/12/20 18:41 - Review of Systems Able to Perform ROS?: Yes Constitutional: No: Fever, Chills, Loss of Appetite, Night Sweats, Weakness HEENTM: No: Eye Pain, Vision changes, Ear Pain, Throat Pain, Throat Swelling, Mouth Pain, Difficulty Swallowing Respiratory: No: Cough, Shortness of Breath, Wheezing, Sputum Production Cardiac (ROS): No: Chest Pain, Chest Tightness, Palpitations, Irregular Heart Beat, Edema ABD/GI: No: Nausea, Vomiting, Abdominal Pain, Diarrhea : No Dysuria, No Hematuria, No Frequency, No Urgency Musculoskeletal: No: Muscle Pain, Back Pain, Joint Pain, Muscle Weakness, Neck Pain; positive: Left ankle inversion injury Integumentary: No: Lesions, Rash Neurological: No: Headache, Numbness, Tingling, Weakness, Speech Difficulties *Physical Exam - Vital Signs Last Vital Signs Temp Pulse Resp BP Pulse Ox 98.2 F 81 20 121/73 100 07/12/20 17:53 07/12/20 17:53 07/12/20 17:53 07/12/20 17:53 07/12/20 17:53 - Physical Exam 07/12/20 18:41 - Physical Exam General Appearance: Nourished, Appropriately Dressed, No Distress Neck: Supple, No Lymphadenopathy (R), No Lymphadenopathy (L), No Rigidity, No Decreased range of motion Respiratory/Chest: Lungs Clear, Normal Breath Sounds. No Respiratory Distress, No Accessory Muscle Use Cardiovascular: Regular Rhythm, Regular Rate, S1, S2 Musculoskeletal: Normal Inspection. No Decreased Range of Motion; tenderness over the anterior talofibular ligament on the left to palpation. No bony tenderness of the distal fibula or tibia. DP and PT pulses 2+. EHL intact. Sensation intact distally. Brisk capillary refill distally. Pain exacerbated with inversion and eversion stress. Patient able to dorsi and plantar flex without difficulty. Extremity: Normal Capillary Refill, Normal Inspection Integumentary: Normal Color, Dry. No Rash Neurologic: foreign correspondent II-XII NML intact, Fully Oriented, Alert, Normal Mood/Affect, Normal Response Medical Decision Making - Medical Decision Making 07/12/20 18:42 Assessment: Patient is a 35-year-old female with a left ankle sprain after inverting her ankle going down the steps Plan: -X-ray shows no acute fracture -Aircast placed -Patient can continue to take Tylenol or ibuprofen for pain -Referral to orthopedics for follow-up given -Patient understands and agrees this treatment plan and she is stable for discharge. Discharge - Discharge Information Problems reviewed: Yes Clinical Impression/Diagnosis: Ankle pain Qualifiers: Chronicity: acute Laterality: left Qualified Code(s): M25.572 - Pain in left ankle and joints of left foot Left ankle sprain Qualifiers: Encounter type: initial encounter Involved ligament of ankle: anterior talofibular ligament Qualified Code(s): S93.492A - Sprain of other ligament of left ankle, initial encounter Condition: Stable Disposition: HOME - Follow up/Referral Referrals: Fany Gannon MD [Primary Care Provider] - Boo Moody DO [Staff Physician] - 1 week - Patient Discharge Instructions Patient Printed Discharge Instructions: DI for Ankle Sprain Additional Instructions: Ice and elevate your ankle to help with pain and swelling. Wear the Aircast for support. If you do not have pain and you feel well, you do not have to wear the Aircast. Follow-up with orthopedics as needed for repeat evaluation. - Post Discharge Activity
== END 2020-07-12 18:54 | disposition home or self-care (01) ==
LOC: JERFT 17:47
DX: M25.572 Pain in left ankle and joints of left foot (principal); S93.492A Sprain of other ligament of left ankle, initial encounter
CPT/HCPCS: 73610-TC-LT-FY; 73630-TC-LT; 99283-25

== ENCOUNTER 2021-07-20 13:54 | Emergency (ER) | payer OTHER ==
[2021-07-20 14:11] VITALS: BP 122/68; PULSE 105; TEMP 98.4; BMI 29.2
[2021-07-20] MEDS ORDERED: IBUPROFEN 400 MG TABLET (FP) PO ONE ×2 (14:53→14:54)
== END 2021-07-20 15:44 | disposition home or self-care (01) ==
LOC: JERFT 13:54
DX: S93.401A Sprain of unspecified ligament of right ankle, initial encounter (principal); S83.421A Sprain of lateral collateral ligament of right knee, initial encounter; W19.XXXA Unspecified fall, initial encounter; Y92.9 Unspecified place or not applicable
CPT/HCPCS: 73562-TC-RT-FY; 73610-TC-RT-FY; 99284-25